=== PATIENT | female | born 1985 | race Two or more races ===

== ENCOUNTER 2016-10-29 16:45 | Outpatient (CLI) | payer OTHER ==
[~2016-10-29] VITALS: Ht 160 cm; Wt 121.1 kg
[~2016-10-29 16:45] MED LIST: ACIPHEX20 MG PO; CALCIUM + D3 E1 EACH PO; CALCIUM 500 MG1 EACH PO; DAILY VALUE1 EACH PO; FLEET ENEMA-AD118 ML PR; LMTHF-PYRIDOXI1 EACH PO; MUCUS ER600 MG PO; NORCO 5/3251 TABLET PO; ROBITUSSIN NIG118 ML PO; TESSALON PERLE100 MG PO; ZITHROMAX250 MG PO; ZOFRAN ODT4 MG PO
[2016-10-29 16:58] VITALS: BP 145/86
[2016-10-29 19:05] VITALS: BP 122/71
== END 2016-10-29 20:10 | disposition home or self-care (01) ==
LOC: LDRP-OP 16:45 → 2WEST 16:46
DX: O26.893 Other specified pregnancy related conditions, third trimester (principal); O99.843 Bariatric surgery status complicating pregnancy, third trimester; Z3A.39 39 weeks gestation of pregnancy
CPT/HCPCS: 59025; G0378

== ENCOUNTER 2016-11-04 08:01 | Inpatient (IN) | payer OTHER ==
[~2016-11-04] VITALS: Ht 160 cm; Wt 120.2 kg
[2016-11-04] VITALS (15 sets, daily range): BP systolic 118–162; BP diastolic 60–86
[2016-11-04] MEDS ORDERED: PRENATAL TABLE1 EAC3 PO (09:45)
[2016-11-04] MEDS ORDERED: BIOTIN5000 MCG PO (09:46)
[2016-11-04] MEDS ORDERED: SENOKOT,SENN1 TABLET PO (09:48)
[2016-11-04 10:57] LABS: EOSINOPHIL COUNT 0.1 K/uL (0-0.3); HEMATOCRIT 32.7 % (36.0-46.0); IMMATURE GRANULOCYTE (%) 0.4 % (0.0-0.7); INSTRUMENT ABS NEUTROPHIL CT 6.3 K/uL; LYMPHOCYTE COUNT 2.1 K/uL (1.0-2.8); MCH 28.2 PG (29.0-34.0); MCHC 32.7 G/DL (30.0-36.0); MCV 86.1 FL (83-99); MEAN PLAT.VOLUME 13.9 uM^3 (9.5-12.4); MONOCYTE (%) 6.5 % (3-12); MONOCYTE COUNT 0.6 K/uL (0-0.8); NEUTROPHIL COUNT 6.3 K/uL (1.8-6.4); PLATELET COUNT 130 K/uL (156-360); RBC DIS.WIDTH-CV 12.8 % (11.8-14.6); RBC DIS.WIDTH-SD 39.8 % (39-53); WHITE BLOOD COUNT 9.1 K/uL (4.1-10.2)
[2016-11-05] VITALS (20 sets, daily range): BP systolic 101–155; BP diastolic 50–92
[2016-11-05 13:20] LABS: EOSINOPHIL (%) 0.1 % (0-5); HEMATOCRIT 33.6 % (36.0-46.0); IMMATURE GRANULOCYTE (%) 0.5 % (0.0-0.7); IMMATURE GRANULOCYTE COUNT 0.1 K/uL; INSTRUMENT ABS NEUTROPHIL CT 10.9 K/uL; LYMPHOCYTE COUNT 1.8 K/uL (1.0-2.8); MCH 28.5 PG (29.0-34.0); MCHC 32.7 G/DL (30.0-36.0); MEAN PLAT.VOLUME 13.9 uM^3 (9.5-12.4); MONOCYTE (%) 4.7 % (3-12); MONOCYTE COUNT 0.6 K/uL (0-0.8); NEUTROPHIL (%) 81.1 % (45-76); NEUTROPHIL COUNT 10.9 K/uL (1.8-6.4); PLATELET COUNT 135 K/uL (156-360); RBC DIS.WIDTH-CV 12.8 % (11.8-14.6); RBC DIS.WIDTH-SD 40.2 % (39-53); RED BLOOD COUNT 3.86 M/uL (3.80-5.20)
[2016-11-05 13:23] LABS: WHITE BLOOD COUNT 13.5 K/uL (4.1-10.2)
[2016-11-06 01:29] VITALS: BP 110/57
[2016-11-06 05:38] VITALS: BP 105/59
[2016-11-06 07:46] LABS: EOSINOPHIL (%) 0.2 % (0-5); HEMATOCRIT 30.7 % (36.0-46.0); IMMATURE GRANULOCYTE (%) 0.6 % (0.0-0.7); IMMATURE GRANULOCYTE COUNT 0.1 K/uL; INSTRUMENT ABS NEUTROPHIL CT 10.4 K/uL; LYMPHOCYTE COUNT 2.3 K/uL (1.0-2.8); MCH 28.1 PG (29.0-34.0); MCHC 32.2 G/DL (30.0-36.0); MCV 87.2 FL (83-99); MEAN PLAT.VOLUME 14.6 uM^3 (9.5-12.4); MONOCYTE (%) 6.4 % (3-12); MONOCYTE COUNT 0.9 K/uL (0-0.8); NEUTROPHIL (%) 76.2 % (45-76); NEUTROPHIL COUNT 10.4 K/uL (1.8-6.4); PLATELET COUNT 128 K/uL (156-360); RBC DIS.WIDTH-CV 12.9 % (11.8-14.6); RBC DIS.WIDTH-SD 40.4 % (39-53); RED BLOOD COUNT 3.52 M/uL (3.80-5.20); WHITE BLOOD COUNT 13.7 K/uL (4.1-10.2)
[2016-11-06 11:34] VITALS: BP 121/76
[2016-11-06 15:18] VITALS: BP 131/67
[2016-11-06 19:13] VITALS: BP 159/71
[2016-11-06 23:18] VITALS: BP 116/76
[2016-11-07 03:08] VITALS: BP 139/88
[2016-11-07 07:30] VITALS: BP 104/54
[2016-11-07] MEDS ORDERED: IBUPROFEN800 MG PO (10:23)
[2016-11-07] MEDS ORDERED: ENDOCET 5-3251 EACH PO (10:23)
[2016-11-07 11:35] VITALS: BP 134/69
== END 2016-11-07 16:20 | disposition home or self-care (01) | DRG 765 ==
LOC: LDRP-OP 08:01 → 2WEST 08:02 → LDRP-OP 11-30 20:49
PROVIDERS: Advanced Practice Midwife; Obstetrics & Gynecology
PROC: 3E033VJ Introduction of Other Hormone into Peripheral Vein, Percutaneous Approach (ICD-10-PCS; principal; 2016-11-04)
PROC: 10D00Z1 Extraction of Products of Conception, Low, Open Approach (ICD-10-PCS; 2016-11-05)
PROC: 10907ZC Drainage of Amniotic Fluid, Therapeutic from Products of Conception, Via Natural or Artificial Opening (ICD-10-PCS; 2016-11-05)
PROC: 3E0R3CZ (ICD-10-PCS; 2016-11-05)
PROC: 0U7C7DZ Dilation of Cervix with Intraluminal Device, Via Natural or Artificial Opening (ICD-10-PCS; 2016-11-05)
PROC: 00HU33Z Insertion of Infusion Device into Spinal Canal, Percutaneous Approach (ICD-10-PCS; 2016-11-05)
DX: O42.12 Full-term premature rupture of membranes, onset of labor more than 24 hours following rupture (principal); O62.0 Primary inadequate contractions; O99.02 Anemia complicating childbirth; D62 Acute posthemorrhagic anemia; O69.82X0 Labor and delivery complicated by other cord entanglement, without compression, not applicable or unspecified; O99.214 Obesity complicating childbirth; E66.01 Morbid (severe) obesity due to excess calories; Z68.37 Body mass index [BMI] 37.0-37.9, adult; O99.844 Bariatric surgery status complicating childbirth; O48.0 Post-term pregnancy; Z37.0 Single live birth; Z3A.40 40 weeks gestation of pregnancy
CPT/HCPCS: 85025; 86850; 86900; 86901; C1755; G0378; J0690; J1100; J1170; J1885; J2175; J2274; J2400; J2405; J3010; J7120